=== PATIENT | female | born 1940 | race Caucasian/White ===

== ENCOUNTER 2019-09-02 13:45 | Outpatient (RCR) | payer MEDICARE, OTHER, SELFPAY ==
--- NOTE | 2019-08-17 10:42 | PTOPEVAL ---
PHYSICAL THERAPY EVALUATION AND PLAN OF CARE 08-17-2019 The PT evaluation was completed today for the diagnosis of B LE lymphedema. Treatment is scheduled for 3x/week for 3 weeks. Thank you for referring Mrs. Harper to [facility]. Please review, sign, date and return this plan of care [facility]. I agree with and certify that the following plan of care is medically necessary. Referring Physician Date Attending Provider: Stan Arthur MD *PT Outpatient Evaluation Start: 08/17/19 09:37 Document 08/17/19 09:30 MARCO (Rec: 08/17/19 10:41 MARCO [id number]) Outpatient Past Medical History Neurological History Hx Neurological Disorders No Significant History Cardiovascular History Hx Congestive Heart Failure Yes Hx Other Cardiac Disorders Yes: pulmonary HTN Respiratory History Hx Chronic Obstructive Pulmonary Disease Yes (COPD) Gastrointestinal History Hx Gastrointestinal Disorders No Significant History Genitourinary History Hx Other Genitourinary Disorders Yes: urinary incontinent- wear pads Musculoskeletal History Hx Joint Replacement Yes: B THR, with R hip dislocation 9x; Hx Other Musculoskeletal Disorders Yes: some weakness in legs, difficulty getting up from sitting Hematological History Hx Anemia Yes Endocrine History Hx Endocrine Disorders No Significant History HEENT History Hx HEENT Disorders No Significant History Other History Hx Other Surgeries Yes: aneurysm R groin; hysterectomy Evaluation Information Problem Diagnosis B LE Lymphedema Onset Jun 2019 Prior Level of Function Activity Level (Last 3 Months) Occupation retired Activity of Daily Living Ability Independent Cooking Yes Cleaning Yes Laundry Yes Shopping Yes Home Setting Home Type House,Multiple Levels Environmental Barriers Stairs, Greater than 4 Living Situation Alone Support Available Local Family Support Mobility Assistive Devices (Used Last 3 None,Cane Months) Comments Additional Prior Level of Function family assist with cooking, Comments heavy tasks; home from in pt [facility] rehab, August 04; walk in home without cane; 6 entry steps with railing; laundry on main level, can avoid basement; Pain Assessment Timing of Pain Assessment Timing of Pain As
--- NOTE | 2019-09-02 14:22 | PTOPEVAL ---
PHYSICAL THERAPY DISCHARGE REPORT 09-02-2019 Mrs. Harper has received 9 Physical Therapy sessions, from August 16 to today, for the diagnosis of B LE lymphedema. Compared to the initial evaluation: her leg has decreased with circumferential measurements: R by 44.8 cm and L by 35.9 cm. Education has been completed and she is independent with the compression garments and foot pieces, doing her self lymph massage and care of LE's. The goals ere achieved. Thank you for referring Shefali Harper to [facility] [place]. Please review, sign, date and return this discharge [facility]. I agree with and certify that the following plan of care is medically necessary. Referring Physician Date Referring Provider: Dr. Arthur general physician: Dr Rodriguez *PT Outpatient Discharge Document 09/02/19 13:35 MARCO (Rec: 09/02/19 14:14 MARCO [email or web address]) Subjective Information Shefali reports: legs are doing Query Text:As Reported By Patient/ well; smaller than they have Family been in a long time; ready to be completed with therapy; is doing her self massage without any problems; Pain Assessment Timing of Pain Assessment Timing of Pain Assessment Assessment Self Report Self Report Pain Level 0 Pain Score Pain Score 0: Self Report Lymphedema Evaluation Skin Inspection Location Left Lower Extremity,Right Lower Extremity Skin Observations Absence of Leg Hair, Hyperpigmentation Lymphedema Stage I Skin Inspection Comment minimal redness and discoloration of skin over R and L lower legs; no edema over dorsum of feet; edema at medial ankles and knees; tenderness to touch over both lower legs; no edema of toes LE Circumferential Measurement Right LE Lymphedema Side Right Metatarsal Heads (cm) 22 Figure 8 of Ankle (cm) 52 8 cm From Bottom of Foot (cm) 25.4 12 cm From Bottom of Foot (cm) 24.2 16 cm From Bottom of Foot (cm) 25.5 20 cm From Bottom of Foot (cm) 27.6 24 cm From Bottom of Foot (cm) 31.2 28 cm From Bottom of Foot (cm) 33.2 32 cm From Bottom of Foot (cm) 35.8 36 cm From Bottom of Foot (cm) 37 40 cm From Bottom of Foot (cm) 36.2 44 cm From Bottom of Foot (cm) 37 48 cm From Bottom of Foot (cm) 44 52 cm From Bottom of Foot (cm) 46 56 cm From Bottom of Foot (cm) 45.2 60 cm From Bottom of Foot (cm) 47.2 64 cm From Bottom of Foot (cm) 49 Total Left Lower Extremity Right LE: 618.5 cm Circumferential Measurement (cm) Left LE Lymphedema Si
== END 2019-09-05 12:37 | disposition home or self-care (01) ==
LOC: ANHPT 13:45
PROVIDERS: PCP Family Medicine Adolescent Medicine; Visit Provider Family Medicine
DX: I89.0 Lymphedema, not elsewhere classified (principal)
CPT/HCPCS: 29581; 97140; 97161

== ENCOUNTER 2020-08-16 12:17 | Outpatient (CLI) | payer MEDICARE, OTHER, SELFPAY ==
--- NOTE | ~2020-08-16 | XR_ITS ---
XR foot RT min 3V DATE: 08/16/2020 12:49 INDICATION: Right hammertoe TECHNIQUE: 4 views COMPARISON: None FINDINGS: There is osteopenia. Prominent hallux valgus and bunion deformity. Prominent plantar calcaneal enthesopathy without erosive change or periostitis. There are prominent osteoarthritic changes at the tarsal joints including joint space narrowing and d egenerative spurring. There is moderate osteoarthritis of the first metatarsophalangeal joint. No fracture, dislocation, periosteal reaction or bone destruction. Hammertoe deformities of the second and third digits. IMPRESSION: Osteopenia Prominent plantar calcaneal enthesopathy Prominent osteoarthritic changes at the tarsal joints Moderate osteoarthritis at the first metatarsophalangeal joint Hallux valgus and bunion deformity Second and third digit hammertoes Reviewed, dictated and finalized at location B.
== END 2020-08-16 12:18 | disposition home or self-care (01) ==
LOC: ANHIMG 12:26
PROVIDERS: PCP Family Medicine Adolescent Medicine; Visit Provider Podiatrist Foot & Ankle Surgery
DX: M20.41 Other hammer toe(s) (acquired), right foot (principal); M85.871 Other specified disorders of bone density and structure, right ankle and foot; M20.11 Hallux valgus (acquired), right foot; M77.31 Calcaneal spur, right foot; M19.071 Primary osteoarthritis, right ankle and foot
CPT/HCPCS: 73630